=== PATIENT | female | born 1985 | race Caucasian/White ===

== ENCOUNTER → 2017-06-25 | Outpatient (CLI) | payer BC ==
--- NOTE | 2017-06-25 23:41 | MR ---
EXAMINATION TYPE: MR femur/thigh RT wo/w con DATE OF EXAM: 06/25/2017 COMPARISON: NONE HISTORY: Lump Swelling Right Thigh...Marker placed on ALBER CONTRAST: Standard multiplanar, multisequence MRI departmental protocol utilizing 5 mL intravenous Gadavist ronni olinium contrast. FINDINGS: There is a 7 x 3 X3 cm oval-shaped well-defined mixed signal lesion within the medial aspec t of the mid thigh. This is adjacent to the mid shaft of the femur. The femur appears intact without evidence of bone destruction. This lesion shows a patchy enhancement with the contrast. The lesion ap pears separate from the femoral artery and vein. The lesion is isointense with muscle on the T1 image s the mass does not appear to be arising from within the thigh muscles. The adjacent muscles appear d isplaced away from the mass. IMPRESSION: Soft tissue enhancing thigh mass. Margins are sharp and there is no surrounding edema. This suggests a more benign etiology. The differential diagnosis includes numerous benign and malignant tumors.
== END | disposition home or self-care (01) ==
LOC: RADMRIMAIN 17:21
PROVIDERS: ATTEND Family Medicine
DX: R22.41 Localized swelling, mass and lump, right lower limb (principal)
CPT/HCPCS: 73720; A9581

== ENCOUNTER → 2017-09-30 | Outpatient (CLI) | payer BC ==
--- NOTE | 2017-09-30 19:05 | CT ---
EXAMINATION TYPE: CT sinus wo con DATE OF EXAM: 09/30/2017 COMPARISON: NONE HISTORY: Chronic sinusitis. CT DLP: 667.3 mGycm. Automated Exposure Control for Dose Reduction was Utilized. TECHNIQUE: CT scan of the sinuses is performed without contrast, axial images are obtained, coronal r eformatted images are also reviewed. FINDINGS: There is fairly normal development and aeration of the paranasal sinuses. There is bilatera l patency of the ostiomeatal complex. Orbital margins are intact. There is no evidence of blowout fra cture. Maxilla is intact. Nasal bone is intact. Visualized temporal bones have normal aeration. The r emainder of the exam is unremarkable. CONCLUSION: Normal CT scan of the paranasal sinuses.
== END | disposition home or self-care (01) ==
LOC: RADCTMAIN 18:37
PROVIDERS: ATTEND Otolaryngology
DX: J32.9 Chronic sinusitis, unspecified (principal)
CPT/HCPCS: 70486

== ENCOUNTER → 2017-11-02 | Outpatient (CLI) | payer BC ==
[2017-11-03 11:54] LABS: Hazelnut IgE <0.35 kU/L (<0.35); Hazelnut IgE Class CLASS 0; Kiwi IgE <0.35 kU/L (<0.35)
[2017-11-03 11:55] LABS: Avocado Class CLASS 0; Banana IgE Class CLASS 0
[2017-11-03 11:56] LABS: Latex IgE Class CLASS 0
== END | disposition home or self-care (01) ==
LOC: LABWHC1 08:53
PROVIDERS: ATTEND Otolaryngology
DX: J30.89 Other allergic rhinitis (principal)
CPT/HCPCS: 36415; 86001; 86003